=== PATIENT | female | born 1995 | race Caucasian/White ===

== ENCOUNTER 2022-03-06 20:33 | Emergency (ER) | payer MEDICAID ==
[~2022-03-06] VITALS: Ht 160 cm; Wt 82.5 kg
[2022-03-06] MEDS ORDERED: DIPHENHYDRAMINE 25MG CAPSULE PO ONE (21:45)
[2022-03-06 22:15] LABS: BASOPHILS % 0.3 % (0.0-2.0); EOSINOPHILS % 1.5 % (0.0-5.0); HEMATOCRIT. 35.9 % (36.0-48.0); HEMOGLOBIN. 12.5 g/dL (12.0-16.0); LYMPHOCYTES % 23.8 % (20.0-50.0); MEAN CORPUSCULAR HEMOGLOBIN 30.6 pg (28.0-32.0); MEAN CORPUSCULAR VOLUME 88.3 fL (81.0-99.0); MEAN PLATELET VOLUME 7.8 fl (7.4-10.4); MONOCYTES % 5.6 % (2.0-8.0); NEUTROPHILS % 68.8 % (40.0-76.0); PLATELET 262 x1000/uL (130-400); RED BLOOD CELL COUNT 4.07 mill/uL (4.2-5.4); RED CELL DISTRIBUTION WIDTH 13.4 % (11.6-14.6)
[2022-03-06 22:20] LABS: CLARITY URINE CLOUDY (CLEAR); COLOR URINE YELLOW (YELLOW); KETONES URINE NEGATIVE (NEGATIVE); LEUKOCYTE ESTERASE URINE 3+ (NEGATIVE); NITRITE URINE NEGATIVE (NEGATIVE); OCCULT BLOOD URINE NEGATIVE (NEGATIVE); PROTEIN URINE NEGATIVE (NEGATIVE); SPECIFIC GRAVITY URINE 1.005 (1.005-1.030); UROBILINOGEN URINE 0.2 E.U./dL (0.2-1.0)
[2022-03-06 22:21] LABS: CHLORIDE 106 mEq/L (98-107)
[2022-03-06] MEDS ORDERED: CEPH250C2 MT (22:59)
[2022-03-06] MEDS ORDERED: CEPHALEXIN 250MG CAPSULE PO NR (23:00)
[2022-03-06 23:30] VITALS: BP 107/62
== END 2022-03-06 23:42 | disposition home or self-care (01) ==
LOC: ER 20:33
DX: O23.42 Unspecified infection of urinary tract in pregnancy, second trimester (principal); N39.0 Urinary tract infection, site not specified; O99.892 Other specified diseases and conditions complicating childbirth; R21 Rash and other nonspecific skin eruption; L29.9 Pruritus, unspecified; Z3A.16 16 weeks gestation of pregnancy
CPT/HCPCS: 36415; 80053; 81003; 85025; 99283; Q0163